=== PATIENT | female | born 1980 | race Caucasian/White ===

== ENCOUNTER 2016-07-09 08:28 | Inpatient (IN) | payer OTHER ==
[~2016-07-09] VITALS: Ht 167.6 cm; Wt 123.3 kg
[~2016-07-09 08:28] MED LIST: BIOTIN 5000MCG PO; CYTOMEL5 MCG PO; ERGOCALCIF50000 UNIT PO; FLEXERIL10 MG PO; FLINTSTONES M300 MCG PO; KRILL OIL500 MG PO; PROTONIX40 MG PO; SINGULAIR10 MG PO; SYNTHROID88 MCG PO; TYLENOL EXTRA500 MG PO; VENTOLIN HFA18 GM IH; VITAMIN D31000 UNI2 PO; WOMEN'S MULTI200 MCG PO
[2016-07-09 10:34] VITALS: BP 128/75
[2016-07-09 17:27] VITALS: BP 144/84
[2016-07-09 18:14] LABS: POINT-OF-CARE METER ID UU14117124
[2016-07-09 19:20] VITALS: BP 153/71
[2016-07-09 23:32] VITALS: BP 126/77
[2016-07-10 02:24] VITALS: BP 121/57
[2016-07-10 07:12] VITALS: BP 119/60
[2016-07-10 07:26] LABS: HEMATOCRIT 38.9 % (36.0-46.0); MCH 27.4 PG (29.0-34.0); MCHC 32.6 G/DL (30.0-36.0); MEAN PLAT.VOLUME 9.1 uM^3 (9.5-12.4); PLATELET COUNT 226 K/uL (156-360); RBC DIS.WIDTH-SD 38.9 % (39-53); RED BLOOD COUNT 4.63 M/uL (3.80-5.20); WHITE BLOOD COUNT 16.1 K/uL (4.1-10.2)
[2016-07-10 07:49] LABS: ANION GAP 9 MEQ/L (2-14); CHLORIDE 105 MEQ/L (99-109); GFR ESTIMATE (CALCULATED) > 59 mL/min/; GLUCOSE 103 mg/dL (70-99); MAGNESIUM 1.6 mg/dl (1.3-2.7); POTASSIUM 4.2 MEQ/L (3.7-5.4); SAMPLE HEMOLYSIS CHECK 0; SAMPLE ICTERIC CHECK 0; SAMPLE LIPEMIA CHECK 0; SODIUM 138 MEQ/L (136-147); UREA NITROGEN (BUN) 10 mg/dL (9-23)
[2016-07-10] MEDS ORDERED: HYDROCODON-ACE1 EAC7 PO (08:22)
== END 2016-07-10 10:46 | disposition home or self-care (01) | DRG 621 ==
LOC: 2SOUTH 08:28 → 2WEST 17:12
PROVIDERS: Surgery
PROC: 0DB64Z3 Excision of Stomach, Percutaneous Endoscopic Approach, Vertical (ICD-10-PCS; principal; 2016-07-09)
DX: E66.01 Morbid (severe) obesity due to excess calories (principal); J45.909 Unspecified asthma, uncomplicated; K21.9 Gastro-esophageal reflux disease without esophagitis; K58.9 Irritable bowel syndrome, unspecified; F32.9 Major depressive disorder, single episode, unspecified; F41.9 Anxiety disorder, unspecified; R73.03 Prediabetes; Z68.41 Body mass index [BMI] 40.0-44.9, adult; E55.9 Vitamin D deficiency, unspecified; G47.9 Sleep disorder, unspecified
CPT/HCPCS: 80048; 82948; 83735; 84100; 85027; J0330; J1100; J1170; J1580; J1644; J1650; J1815; J2250; J2405; J2710; J2765; J3010; J3480; J7050; J7120; S0020